=== PATIENT | female | born 2005 | race African-American/Black ===

== ENCOUNTER 2025-05-29 12:48 | Emergency (ER) | payer SELFPAY ==
[2025-05-29 13:54] VITALS: BP 115/59; PULSE 57; RESP 16; TEMP 36.1; O2SAT 98; BMI 35.8
--- NOTE | 2025-05-29 13:58 | ED.GENADULT ---
HPI - General Adult General Chief complaint: Urogenital-Female Stated complaint: ? UTI Time Seen by Provider: 05/29/25 15:53 Source: patient Mode of arrival: ambulatory Limitations: no limitations History of Present Illness ED Provider: Ba Pino HPI narrative: 20 yold female gilma with no pmh presents to the ED for evaluation for UTI. Patient states she went to her campus clinic to check for and found to have a UTI. patient is asymptomatic. Patient states is negative. Patient states her campus clinic can not prescribe antiobitcs and she had to come to the ED for antibiotics. Related Data Previous Rx's ?Medication ?Instructions ?Recorded nitrofurantoin 100 mg PO Q12H 7 days #14 caps 05/29/25 monohydrate/macrocrystals 100 mg capsule (Macrobid) Allergies Allergy/AdvReac Type Severity Reaction Status Date / Time No Known Allergies Allergy Verified 05/29/25 13:58 Review of Systems Review of Systems: positive UTI Yes all other systems are reviewed and are negative PMFSH Social History Social History Advance Directives: No Advance Directives Information Provided: No Physical Exam ED Vital Signs: Vital Signs - 24 hr 05/29/25 13:54 Temperature 97 F Pulse Rate 57 Respiratory Rate 16 Blood Pressure 115/59 L Pulse Oximetry 98 Oxygen Delivery Method Room Air BMI result Body Mass Index 35.8 Const General: cooperative, healthy appearing, comfortable, no acute distress, well developed, alert, awake and Physically active Orientation/consciousness: patient oriented x3 HENMT Head: Yes normal to inspection, Yes No palpable skull fracture present, Yes normocephalic and Yes atraumatic Eyes General: appearance normal, both eyes and all related structures Neck Neck: Yes normal visual inspection, Yes full ROM, Yes no lymphadenopathy, Yes no meningeal signs, Yes trachea midline, Yes supple, No anterior neck swelling and No tender Chest Chest palpation & inspection: normal inspection of the chest and normal palpation of entire chest wall Resp Effort & Inspection: normal respiratory effort and able to speak in complete sentences Auscultation: clear to auscultation bilaterally Cardio Jugular venous distension: no JVD Heart sounds: S1 normal heart sound present and S2 normal heart sound present GI Inspection: Yes normal to inspection Palpation (GI): Soft to palpation, not firm, nontender, no guarding and not rigid General: Yes no CVA tenderness Back/Spine/Pelvis Back: no CVA tenderness and No back tenderness Skin General skin exam: no rashes or lesions noted, elasticity normal and turgor normal Neuro General: patient oriented x3, gait normal, tone normal, moves all extremities, Normal light touch and pain sensation, no meningeal signs, no focal motor deficits and CN's II-XI intact bilaterally Extrem General: Yes normal to inspection, Yes full ROM and Yes capillary refill normal Psych Appearance: grossly normal, well kempt and not disheveled Course Course Course Narrative: RME: 20 yold female presents to the ED for treatment for UTI. patient went her to her campus clinic to be tested for and found to have UTI as per provider. Patient states test was negative. Patient is presently asymptomatic. Medical Decision Making Medical Decision Making [facility] Narrative: 20-year-old female presents to the ED for positive UTI at [facility]. Patient was referred to ED for oral antibiotics. Patient went to the [facility] clinic to check for which was negative. Patient denies any abdominal pain, nausea, vomiting, flank pain, fever, or chills. Vital signs are stable. Not suspecting pyelonephritis, appendicitis, cholecystitis, ecoptic , Kidney stones, ovarian torsion, tubo ovarion abscess, or any other life threatening etiology. Differential Diagnosis Differential Diagnoses: The differential diagnosis associated with the presentation includes (UTI ) Admission/Observation Consideration of admission/observation: Escalation of care including admission/observation considered Lab Data [facility] Lab Attestation statement: I reviewed the patient's lab results. Labs: Lab Results 05/29/25 Range/Units 15:29 Urine Color Yellow Urine Appearance Clear Urine pH 6.5 (5.0-9.0) Ur Specific [place] 1.015 (1.005-1.025) Urine Protein Negative (Neg-Trace) mg/dL Urine Glucose (UA) Negative (Negative) mg/dL Urine Ketones Negative (Negative) mg/dL Urine Blood Negative (Negative) Urine Nitrite Negative (Negative) Ur Leukocyte Esterase Moderate (2+) H (Negative) Urine RBC 0-2 (0-2) /HPF Urine WBC 0-5 (0-5) /HPF Ur Squamous Epith Cells 6-10 (0-2) /HPF Urine Bacteria 1+ (None Seen) Hyaline Casts 0-2 (0-2) /LPF Urine Test NEGATIVE (NEGATIVE) Independent Historian Clinical information obtained from an independent historian. History obtained from or confirmed by: Other (patient) Prescription Management I considered prescription management with: Antibiotic Discharge Plan Discharge Clinical Impression: Urinary tract infection Patient Disposition: Home, Self-Care Instructions: Urinary Tract Infection in Women (ED) Additional Instructions: Recommend follow-up with primary care provider. Return to the ED immediately for any abdominal pain, vaginal discharge, vaginal bleeding, or any other concerning symptoms. Prescriptions: New nitrofurantoin monohyd/m-cryst [Macrobid] 100 mg capsule 100 mg PO Q12H 7 Days Qty: 14 0RF Rx Instructions: must administer with a meal/food Referrals: [facility] [place] Primary Care, [facility] [Provider Group, Internal Medicine] - 2 days Referral Note: UTI Clinical Impression: Urinary tract infection Stand Alone Forms: Work/School Release Interventions: ED Discharge Assessment Last Done: 05/29/25 17:01 Discharge Date/Time: 05/29/25 17:07 Print Language: [place]
[2025-05-29 15:36] LABS: Appearance Urine Clear; Glucose Urine UA Negative (Negative); PH 6.5 (5.0-9.0); Specific Gravity - Urine 1.015 (1.005-1.025); UMIC TRIGGER UACC YES
[2025-05-29 15:39] LABS: UPreg QC Valid YES
[2025-05-29 15:50] LABS: UACC Culture Trigger YES
[2025-05-29 17:01] VITALS: BP 115/59; PULSE 57; RESP 16; TEMP 36.1; O2SAT 98
== END 2025-05-29 17:07 | disposition home or self-care (01) ==
PROVIDERS: Physician Assistant; Emergency Provider Emergency Medicine
DX: N39.0 Urinary tract infection, site not specified (principal)
CPT/HCPCS: 81001; 81025; 87086; 99283; 99284